=== PATIENT | male | born 1995 | race Hispanic/Latino ===

== ENCOUNTER 2022-07-11 12:40 | Emergency (ER) | payer OTHER ==
[~2022-07-11] VITALS: Ht 172.7 cm; Wt 106.6 kg
[2022-07-11 12:44] VITALS: BP 126/69
[2022-07-11] MEDS ORDERED: HYDROCODONE/ACETAMINOPHEN 10/325 MG TAB PO ONE (13:00)
[2022-07-11] MEDS ORDERED: NAPR500T6 PO (13:11)
== END 2022-07-11 13:18 | disposition home or self-care (01) ==
LOC: EDH 12:40
DX: S93.492A Sprain of other ligament of left ankle, initial encounter (principal); X58.XXXA Exposure to other specified factors, initial encounter; Y93.89 Activity, other specified; Y92.89 Other specified places as the place of occurrence of the external cause; Y99.8 Other external cause status
CPT/HCPCS: 29515; 73610